=== PATIENT | male | born 1995 | race African-American/Black ===

== ENCOUNTER 2021-03-12 12:37 | Emergency (ER) | payer OTHER ==
[~2021-03-12] VITALS: Ht 190.5 cm; Wt 90.7 kg
[2021-03-12] MEDS ORDERED: POLYMYXIN B/TMP10 ML OPHTHALMIC (13:36)
[2021-03-12 13:45] VITALS: BP 125/85
== END 2021-03-12 13:45 | disposition home or self-care (01) ==
LOC: M.ERS 12:37
DX: H16.8 Other keratitis (principal)